=== PATIENT | female | born 1950 | race Caucasian/White ===

== ENCOUNTER → 2024-03-03 10:27 | Outpatient (CLI) | payer OTHER ==
[~2024-03-03 10:27] MED LIST: ALUPURINOL PO; AMLODIPINE BESYL5 MG PO; ROSUVASTATIN CA20 MG PO; VALSARTAN-HCTZ1 EAC4 PO
[2024-03-03 12:03] LABS: URINE APPEARANCE Clear; URINE BILIRRUBIN Negative (NEGATIVE); URINE BLOOD Trace; URINE COLOR Yellow; URINE GLUCOSE Negative (NEGATIVE); URINE KETONE Negative (NEGATIVE); URINE LEUKOCYTE Small; URINE NITRATE Negative; URINE PROTEIN Negative (NEGATIVE); URINE UROBILINOGEN 0.2 E.U./dl
[2024-03-03 12:07] LABS: URINE BACTERIA 740.6 uL (0.0-1933); URINE EPITHELIAL CELLS 37.8 uL (0.0-38.8); URINE RBC 14.5 uL (0.0-20.8); URINE WBC 21.7 uL (0.0-23.2)
[2024-03-03 12:12] LABS: URINE CAST 0.15 uL (0.0-1.40)
[2024-03-03 12:34] LABS: HEMOGLOBIN 14.5 g/dL (12.0-15.00); MEAN CELL VOLUME 84.5 fL (80.00-100.00); MEAN CORPUSCULAR HEMOGLOBIN 28.5 pg (27.00-32.0); MEAN CORPUSCULAR HGB CONC 33.7 g/dl (32.0-36.0); PLATELET COUNT 278 K/uL (150-450); RED BLOOD COUNT 5.09 M/uL (4.00-6.00); RED CELL DISTRIBUTION WIDTH 15.9 % (11.5-14.5)
[2024-03-03 12:42] LABS: PARTIAL THROMBOPLASTIN TIME 30.3 SECONDS (22.0-34.0); PROTHROMBIN TIME 10.9 SECONDS (9.0-11.5)
[2024-03-03 12:46] LABS: BILIRUBIN TOTAL 0.98 mg/dL (0.3-1.2); CALCIUM 10.1 mg/dL (8.5-10.1); CREATININE SERUM 0.57 mg/dL (0.55-1.02); GFR 104.56; GLOBULINA 3.2 G/DL (2.4-3.5); POTASSIUM 4.04 mEq/L (3.5-5.1); TOTAL PROTEIN 7.2 gm/dL (6.4-8.2)
== END | disposition home or self-care (01) ==
LOC: LAB 10:27 → RAD 10:27
PROVIDERS: ATTEND Obstetrics & Gynecology
DX: R05.9 Cough, unspecified (principal); I10 Essential (primary) hypertension; E11.9 Type 2 diabetes mellitus without complications

== ENCOUNTER 2024-03-12 06:46 | Day surgery (SDC) | payer OTHER ==
[2024-03-12] MEDS ORDERED: POVIDONE-IODINE 118 ML BOTT TOP ONE (12:32)
[2024-03-12] MEDS ORDERED: MORPHINE SULFATE 4 MG/ML VIAL IV PRN (14:00)
[2024-03-12] MEDS ORDERED: PROMETHAZINE HCL 50 MG/ML AMPUL IM ONE (14:00)
== END 2024-03-12 18:40 | disposition home or self-care (01) ==
LOC: CIR.AMB 06:46
PROVIDERS: ATTEND Obstetrics & Gynecology
DX: N85.8 Other specified noninflammatory disorders of uterus (principal); N93.8 Other specified abnormal uterine and vaginal bleeding